=== PATIENT | female | born 1960 | race African-American/Black ===

== ENCOUNTER 2020-08-10 13:35 | Emergency (ER) | payer MEDICAID ==
[~2020-08-10] VITALS: Ht 172.7 cm; Wt 113.4 kg
[~2020-08-10 13:35] MED LIST: ALBUAER3 IN; AMLO-489 PO; BECL80AE11 IN; FURO20TA3 PO; METO-169 PO
[2020-08-10] MEDS ORDERED: cloNIDine HCL 0.1 MG TAB PO ONE (14:15)
[2020-08-10] MEDS ORDERED: HYDROcodone-ACET 10/325MG TAB PO ONE (14:30)
[2020-08-10 15:01] LABS: Basophils # (auto) 0.1 10 ^3/uL (0-0.2); Basophils % (auto) 0.7 % (0.0-2.0); Eosinophils # (auto) 0.1 10 ^3/uL (0-0.8); Eosinophils % (auto) 1.4 % (0.0-7.0); Hematocrit 38.7 % (36.0-46.0); Hemoglobin 12.9 g/dL (12.2-16.2); Lymphocytes # (auto) 2.8 10 ^3/uL (0.4-5.4); Lymphocytes % (auto) 35.6 % (10.0-50.0); Mean Corpuscular Hemoglobin 28.6 pg (28.0-32.0); Mean Corpuscular Hgb Conc. 33.3 g/dL (32.0-36.0); Mean Corpuscular Volume 85.9 fL (80.0-100.0); Monocytes # (auto) 0.5 10 ^3/uL (0-1.3); Monocytes % (auto) 6.3 % (0.0-12.0); Neutrophils # (auto) 4.4 10 ^3/uL (1.6-8.6); Nucleated Red Blood Cells % 0.1 %; Platelet Count (auto) 265 10^3/uL (140-450); Red Cell Distribution Width 16.2 % (11.8-14.3); White Blood Cell 7.9 10^3/uL (4.4-10.8)
[2020-08-10 15:25] LABS: Chloride 109 mmol/L (98-107); Potassium 3.8 mmol/L (3.5-5.1); Sodium 143 mmol/L (136-145)
[2020-08-10 15:29] LABS: Alanine Aminotransferase 20 U/L (13-56); Albumin 3.3 g/dL (3.4-5.0); Anion Gap 8 (5-15); Aspartate Aminotransferase 31 U/L (15-37); Blood Urea Nitrogen 11 mg/dL (7-18); Calcium 8.5 mg/dL (8.5-10.1); Carbon Dioxide 26 mmol/L (21-32); GFR African American 80 mL/min; GFR Non-African American 66 mL/min; Glucose 86 mg/dL (74-106)
[2020-08-10 15:34] LABS: Alkaline Phosphatase 120 U/L (45-117); Bilirubin, Total 0.4 mg/dL (0.2-1.0); Total Protein 7.6 g/dL (6.4-8.2)
[2020-08-10 15:54] VITALS: BP 161/78
== END 2020-08-10 15:56 | disposition home or self-care (01) ==
LOC: ER 13:35
DX: I16.0 Hypertensive urgency (principal); I10 Essential (primary) hypertension; J44.9 Chronic obstructive pulmonary disease, unspecified; F17.210 Nicotine dependence, cigarettes, uncomplicated; R51.9 Headache, unspecified; Z86.73 Personal history of transient ischemic attack (TIA), and cerebral infarction without residual deficits
CPT/HCPCS: 36415; 70450; 80053; 84484; 85025; 93005

== ENCOUNTER 2020-08-27 13:00 | Emergency (ER) | payer MEDICAID ==
[~2020-08-27] VITALS: Ht 172.7 cm; Wt 108.9 kg
[2020-08-27] MEDS ORDERED: cloNIDine HCL 0.1 MG TAB ONE (13:09)
[2020-08-27] MEDS ORDERED: cloNIDine HCL 0.1 MG TAB PO ONE (13:15)
[2020-08-27 14:21] LABS: Basophils # (auto) 0.1 10 ^3/uL (0-0.2); Basophils % (auto) 0.7 % (0.0-2.0); Eosinophils # (auto) 0.1 10 ^3/uL (0-0.8); Eosinophils % (auto) 0.9 % (0.0-7.0); Hematocrit 40.8 % (36.0-46.0); Hemoglobin 13.6 g/dL (12.2-16.2); Lymphocytes # (auto) 2.5 10 ^3/uL (0.4-5.4); Lymphocytes % (auto) 25.5 % (10.0-50.0); Mean Corpuscular Hemoglobin 28.2 pg (28.0-32.0); Mean Corpuscular Hgb Conc. 33.3 g/dL (32.0-36.0); Mean Corpuscular Volume 84.9 fL (80.0-100.0); Monocytes # (auto) 0.5 10 ^3/uL (0-1.3); Monocytes % (auto) 5.3 % (0.0-12.0); Neutrophils # (auto) 6.7 10 ^3/uL (1.6-8.6); Neutrophils % (auto) 67.6 % (37.0-80.0); Nucleated Red Blood Cells % 0.1 %; Platelet Count (auto) 302 10^3/uL (140-450); Red Blood Cells 4.81 10^6/uL (4.0-5.20); Red Cell Distribution Width 15.5 % (11.8-14.3); White Blood Cell 9.9 10^3/uL (4.4-10.8)
[2020-08-27 14:33] LABS: Albumin 3.6 g/dL (3.4-5.0); Anion Gap 7 (5-15); Blood Urea Nitrogen 14 mg/dL (7-18); Calcium 9.4 mg/dL (8.5-10.1); Carbon Dioxide 25 mmol/L (21-32); Chloride 111 mmol/L (98-107); Glucose 90 mg/dL (74-106); Potassium 3.6 mmol/L (3.5-5.1); Sodium 143 mmol/L (136-145)
[2020-08-27 14:39] LABS: Alanine Aminotransferase 18 U/L (13-56); Alkaline Phosphatase 121 U/L (45-117); Aspartate Aminotransferase 58 U/L (15-37); BUN/Creatinine Ratio 16.9; Bilirubin, Total 0.3 mg/dL (0.2-1.0); GFR African American 90 mL/min; GFR Non-African American 75 mL/min; Total Protein 7.7 g/dL (6.4-8.2)
[2020-08-27] MEDS ORDERED: IOHEXOL 300 MG/ML 100ML BOTTLE IJ ONE (15:25)
[2020-08-27] MEDS ORDERED: hydrALAZINE HCL 20 MG/ML VL IV ONE (16:30)
[2020-08-27 16:37] VITALS: BP 163/81
[2020-08-27] MEDS ORDERED: HYDROcodone-ACET 10/325MG TAB PO ONE (17:15)
[2020-08-27 17:50] LABS: Urine Bacteria NONE SEEN /hpf (None Seen); Urine Blood Negative /uL (Negative); Urine WBC 1 /hpf (0 - 5)
[2020-08-27 18:01] LABS: Urine Specific Gravity > 1.050 (1.001-1.035)
== END 2020-08-27 17:48 | disposition left against medical advice (07) ==
LOC: ER 13:00
DX: I16.1 Hypertensive emergency (principal); R51.9 Headache, unspecified; F17.210 Nicotine dependence, cigarettes, uncomplicated; J44.9 Chronic obstructive pulmonary disease, unspecified; Z86.73 Personal history of transient ischemic attack (TIA), and cerebral infarction without residual deficits; Z79.899 Other long term (current) drug therapy; Z98.890 Other specified postprocedural states; Z53.29 Procedure and treatment not carried out because of patient's decision for other reasons
CPT/HCPCS: 36415; 70450; 71046; 74177; 80053; 81001; 82570; 84484; 84585; 85025; 93005; 96374; 99285; J0360; Q9967

== ENCOUNTER 2020-09-06 10:12 | Inpatient (IN) | payer MEDICAID ==
[~2020-09-06] VITALS: Ht 172.7 cm; Wt 118.4 kg
[2020-09-06] MEDS ORDERED: amLODIPine BESYLATE 5 MG TAB PO ONE (10:30)
[2020-09-06 11:01] LABS: Basophils # (auto) 0.1 10 ^3/uL (0-0.2); Basophils % (auto) 0.8 % (0.0-2.0); Eosinophils # (auto) 0.1 10 ^3/uL (0-0.8); Eosinophils % (auto) 0.6 % (0.0-7.0); Hemoglobin 13.7 g/dL (12.2-16.2); Lymphocytes # (auto) 1.9 10 ^3/uL (0.4-5.4); Lymphocytes % (auto) 21.2 % (10.0-50.0); Mean Corpuscular Hemoglobin 28.4 pg (28.0-32.0); Mean Corpuscular Hgb Conc. 33.3 g/dL (32.0-36.0); Mean Corpuscular Volume 85.3 fL (80.0-100.0); Monocytes # (auto) 0.5 10 ^3/uL (0-1.3); Neutrophils # (auto) 6.4 10 ^3/uL (1.6-8.6); Neutrophils % (auto) 71.4 % (37.0-80.0); Nucleated Red Blood Cells % 0.1 %; Platelet Count (auto) 285 10^3/uL (140-450); Red Blood Cells 4.81 10^6/uL (4.0-5.20); White Blood Cell 8.9 10^3/uL (4.4-10.8)
[2020-09-06 11:19] LABS: Albumin 3.6 g/dL (3.4-5.0); Anion Gap 9 (5-15); Blood Urea Nitrogen 12 mg/dL (7-18); Calcium 8.9 mg/dL (8.5-10.1); Carbon Dioxide 22 mmol/L (21-32); Chloride 109 mmol/L (98-107); Glucose 94 mg/dL (74-106); INR 0.99 (0.9-1.15); Magnesium 2.2 mg/dL (1.6-2.6); Partial Thromboplastin Time 26.5 sec (23.0-31.2); Potassium 3.4 mmol/L (3.5-5.1); Sodium 140 mmol/L (136-145)
[2020-09-06 11:26] LABS: Alanine Aminotransferase 24 U/L (13-56); Alkaline Phosphatase 137 U/L (45-117); Aspartate Aminotransferase 54 U/L (15-37); BUN/Creatinine Ratio 13.8; Bilirubin, Total 0.6 mg/dL (0.2-1.0); GFR African American 86 mL/min; GFR Non-African American 71 mL/min; Total Protein 7.8 g/dL (6.4-8.2)
[2020-09-06] MEDS ORDERED: ONDANSETRON HCL 4 MG/2 ML VIAL IV ONE (11:45)
[2020-09-06] MEDS ORDERED: MORPHINE SULFATE 4 MG/ML SYR/VIAL IV ONE (11:45)
[2020-09-06 12:21] LABS: Urine WBC None Seen /hpf (0 - 5)
[2020-09-06 12:29] LABS: Urine Bacteria FEW /hpf (None Seen); Urine Blood 1+ /uL (Negative); Urine Specific Gravity 1.013 (1.001-1.035)
[2020-09-06] MEDS ORDERED: ONDANSETRON HCL 4 MG/2 ML VIAL IV PRN (14:15)
[2020-09-06] MEDS ORDERED: DOCUSATE CALCIUM 240 MG CAP PO PRN (14:15)
[2020-09-06] MEDS ORDERED: NITROGLYCERIN 0.4 MG SL TAB SL PRN (14:15)
[2020-09-06] MEDS ORDERED: POTASSIUM CHL 10 Meq TABLET PO ONE (14:15)
[2020-09-06] MEDS ORDERED: MORPHINE SULF INJ 2 MG/ML SYRINGE 1ML IV PRN (14:15)
[2020-09-06 14:24] VITALS: BP 157/89
[2020-09-06] MEDS: MORPHINE SULFATE 4 MG/ML SYR/VIAL IV PRN ×3 (15:52→23:19)
[2020-09-06] MEDS: hydrALAZINE HCL 20 MG/ML VL IV PRN (16:55)
[2020-09-06 17:00] VITALS: BP 152/87
[2020-09-06] MEDS: BUDESONIDE (INHALATION) 0.5 MG/2 ML NEB NEB SCH (18:29)
[2020-09-06 22:00] VITALS: BP 141/69
[2020-09-06] MEDS: ACETAMINOPHEN 500 MG TAB PO PRN (23:29)
[2020-09-07 05:00] VITALS: BP 144/80
[2020-09-07 06:55] LABS: Basophils # (auto) 0.1 10 ^3/uL (0-0.2); Basophils % (auto) 0.8 % (0.0-2.0); Eosinophils # (auto) 0.1 10 ^3/uL (0-0.8); Eosinophils % (auto) 1.3 % (0.0-7.0); Hematocrit 38.7 % (36.0-46.0); Hemoglobin 12.8 g/dL (12.2-16.2); Mean Corpuscular Hemoglobin 28.3 pg (28.0-32.0); Mean Corpuscular Volume 85.8 fL (80.0-100.0); Monocytes # (auto) 0.6 10 ^3/uL (0-1.3); Monocytes % (auto) 9.2 % (0.0-12.0); Neutrophils # (auto) 3.8 10 ^3/uL (1.6-8.6); Neutrophils % (auto) 58.7 % (37.0-80.0); Nucleated Red Blood Cells % 0.1 %; Platelet Count (auto) 269 10^3/uL (140-450); Red Blood Cells 4.51 10^6/uL (4.0-5.20); Red Cell Distribution Width 15.3 % (11.8-14.3); White Blood Cell 6.6 10^3/uL (4.4-10.8)
[2020-09-07] MEDS: MORPHINE SULFATE 4 MG/ML SYR/VIAL IV PRN ×3 (06:56→23:57)
[2020-09-07 07:13] LABS: Albumin 3.2 g/dL (3.4-5.0); Calcium 8.6 mg/dL (8.5-10.1); Potassium 3.7 mmol/L (3.5-5.1)
[2020-09-07 07:17] LABS: BUN/Creatinine Ratio 17.6; Bilirubin, Total 0.6 mg/dL (0.2-1.0); Total Protein 6.9 g/dL (6.4-8.2)
[2020-09-07] MEDS: ACETAMINOPHEN 500 MG TAB PO PRN ×2 (08:02→20:56)
[2020-09-07 08:30] VITALS: BP 138/76
[2020-09-07] MEDS: amLODIPine BESYLATE 5 MG TAB PO SCH (09:41)
[2020-09-07] MEDS: METOPROLOL SUCCINATE XL 50 MG TAB PO SCH (09:42)
[2020-09-07] MEDS: PANTOPRAZOLE 40 MG TAB PO SCH (09:44)
[2020-09-07] MEDS: ENOXAPARIN SOD 40 MG/0.4 ML SYRINGE SC SCH (09:44)
[2020-09-07] MEDS ORDERED: KETOROLAC TROMETH 30 MG/ML 1ML VIAL IV ONE (10:30)
[2020-09-07] MEDS ORDERED: LORazepam 2MG/ML-1ML VIAL IV ONE (10:30)
[2020-09-07] MEDS: BUDESONIDE (INHALATION) 0.5 MG/2 ML NEB NEB SCH ×2 (10:35→21:49)
[2020-09-07] MEDS: ALBUTEROL SULF 2.5 MG/0.5ML(0.5%) NEB SOLN NEB PRN (10:36)
[2020-09-07 17:00] VITALS: BP 142/76
[2020-09-07 20:00] VITALS: BP 128/88
[2020-09-07 22:00] VITALS: BP 128/88
[2020-09-08 01:07] LABS: Cholesterol 189 mg/dL (< 200); HDL Cholesterol 37 mg/dL (40-59); LDL Cholesterol 127 mg/dL (< 100); Triglycerides 141 mg/dL (< 150)
[2020-09-08] MEDS: LORazepam 0.5 MG TAB PO PRN ×2 (02:10→21:55)
[2020-09-08 05:00] VITALS: BP 120/71
[2020-09-08] MEDS: BUDESONIDE (INHALATION) 0.5 MG/2 ML NEB NEB SCH ×2 (06:03→19:52)
[2020-09-08] MEDS: ALBUTEROL SULF 2.5 MG/0.5ML(0.5%) NEB SOLN NEB PRN ×2 (06:03→19:52)
[2020-09-08 08:00] VITALS: BP 138/76
[2020-09-08 08:42] VITALS: BP 158/101
[2020-09-08] MEDS: MORPHINE SULFATE 4 MG/ML SYR/VIAL IV PRN ×3 (08:48→19:58)
[2020-09-08] MEDS: ASPirin-EC 81 mg tab PO SCH (08:48)
[2020-09-08] MEDS: amLODIPine BESYLATE 5 MG TAB PO SCH (08:49)
[2020-09-08] MEDS: ENOXAPARIN SOD 40 MG/0.4 ML SYRINGE SC SCH (08:49)
[2020-09-08] MEDS: PANTOPRAZOLE 40 MG TAB PO SCH (08:49)
[2020-09-08] MEDS: METOPROLOL SUCCINATE XL 50 MG TAB PO SCH (08:50)
[2020-09-08 12:27] VITALS: BP 153/89
[2020-09-08] MEDS: hydrALAZINE HCL 20 MG/ML VL IV PRN (13:47)
[2020-09-08] MEDS: HYDROcodone-ACET 5/325MG TAB PO PRN (14:00)
[2020-09-08] MEDS ORDERED: cloNIDine HCL 0.1 MG TAB PO PRN (14:45)
[2020-09-08 16:48] VITALS: BP 126/76
[2020-09-08] MEDS: ACETAMINOPHEN 500 MG TAB PO PRN (19:59)
[2020-09-08] MEDS: ATORVASTATIN 20 MG TAB PO SCH (21:55)
[2020-09-08 22:09] VITALS: BP 147/69
[2020-09-09] VITALS (7 sets, daily range): BP systolic 98–154; BP diastolic 69–88
[2020-09-09] MEDS: MORPHINE SULFATE 4 MG/ML SYR/VIAL IV PRN ×3 (05:52→20:15)
[2020-09-09] MEDS: hydrALAZINE HCL 20 MG/ML VL IV PRN (05:53)
[2020-09-09] MEDS: ACETAMINOPHEN 500 MG TAB PO PRN ×2 (05:54→20:15)
[2020-09-09] MEDS: HYDROcodone-ACET 5/325MG TAB PO PRN ×2 (08:45→16:12)
[2020-09-09] MEDS: ASPirin-EC 81 mg tab PO SCH (09:23)
[2020-09-09] MEDS: PANTOPRAZOLE 40 MG TAB PO SCH (09:24)
[2020-09-09] MEDS: amLODIPine BESYLATE 5 MG TAB PO SCH (09:24)
[2020-09-09] MEDS: METOPROLOL SUCCINATE XL 50 MG TAB PO SCH (09:24)
[2020-09-09] MEDS: ENOXAPARIN SOD 40 MG/0.4 ML SYRINGE SC SCH (09:25)
[2020-09-09] MEDS: BUDESONIDE (INHALATION) 0.5 MG/2 ML NEB NEB SCH ×2 (09:53→19:19)
[2020-09-09] MEDS: ALBUTEROL SULF 2.5 MG/0.5ML(0.5%) NEB SOLN NEB PRN (09:53)
[2020-09-09] MEDS: ATORVASTATIN 20 MG TAB PO SCH (21:31)
[2020-09-09] MEDS: LORazepam 0.5 MG TAB PO PRN (21:31)
[2020-09-10 05:14] VITALS: BP 133/76
[2020-09-10] MEDS: MORPHINE SULFATE 4 MG/ML SYR/VIAL IV PRN (06:46)
[2020-09-10] MEDS: ACETAMINOPHEN 500 MG TAB PO PRN (06:46)
[2020-09-10] MEDS: BUDESONIDE (INHALATION) 0.5 MG/2 ML NEB NEB SCH (07:08)
[2020-09-10] MEDS: ALBUTEROL SULF 2.5 MG/0.5ML(0.5%) NEB SOLN NEB PRN (07:08)
[2020-09-10 09:00] VITALS: BP 152/85
[2020-09-10] MEDS: ASPirin-EC 81 mg tab PO SCH (09:34)
[2020-09-10] MEDS: amLODIPine BESYLATE 5 MG TAB PO SCH (09:35)
[2020-09-10] MEDS: PANTOPRAZOLE 40 MG TAB PO SCH (09:35)
[2020-09-10] MEDS: METOPROLOL SUCCINATE XL 50 MG TAB PO SCH (09:36)
[2020-09-10] MEDS: ENOXAPARIN SOD 40 MG/0.4 ML SYRINGE SC SCH (09:36)
[2020-09-10] MEDS: HYDROcodone-ACET 5/325MG TAB PO PRN (11:04)
[2020-09-10 12:23] VITALS: BP 153/87
[2020-09-10 13:00] VITALS: BP 153/87
== END 2020-09-10 13:45 | disposition home or self-care (01) | DRG 199 ==
LOC: ER 10:12 → TELE 14:01 → TELE-CENTR 16:00
PROVIDERS: ADMIT Family Medicine; ATTEND Internal Medicine
DX: I16.1 Hypertensive emergency (principal); E66.01 Morbid (severe) obesity due to excess calories; E87.6 Hypokalemia; J45.909 Unspecified asthma, uncomplicated; M54.2 Cervicalgia; Z68.39 Body mass index [BMI] 39.0-39.9, adult; F17.210 Nicotine dependence, cigarettes, uncomplicated; G47.10 Hypersomnia, unspecified; I10 Essential (primary) hypertension; I25.10 Atherosclerotic heart disease of native coronary artery without angina pectoris; J44.9 Chronic obstructive pulmonary disease, unspecified; K43.9 Ventral hernia without obstruction or gangrene; M19.90 Unspecified osteoarthritis, unspecified site; N28.89 Other specified disorders of kidney and ureter; Z20.822 Contact with and (suspected) exposure to COVID-19; Z79.82 Long term (current) use of aspirin; Z79.899 Other long term (current) drug therapy; Z82.49 Family history of ischemic heart disease and other diseases of the circulatory system; Z83.3 Family history of diabetes mellitus; Z86.73 Personal history of transient ischemic attack (TIA), and cerebral infarction without residual deficits; Z90.49 Acquired absence of other specified parts of digestive tract
CPT/HCPCS: 36415; 70450; 70551; 71045; 72040; 73200; 74176; 76775; 78315; 80053; 80061; 81001; 83735; 84443; 84484; 85025; 85379; 85610; 85652; 85730; 87426; 93005; 93306; 93886; 93971; 94640; 96374; 96375; G0378; J1885; J2405

== ENCOUNTER 2022-07-06 15:34 | Emergency (ER) | payer MEDICAID ==
[~2022-07-06] VITALS: Ht 172.7 cm; Wt 120.5 kg
[~2022-07-06 15:34] MED LIST changes: -METO-169 PO; +METO-289 PO
[2022-07-06] MEDS ORDERED: ACETAMINOPHEN 500 MG TAB PO ONE (15:45)
[2022-07-06] MEDS ORDERED: IPRATROPIUM BROM 0.5 MG/2.5ML INH SOL NEB ONE (15:45)
[2022-07-06] MEDS ORDERED: ALBUTEROL SULF 2.5 MG/0.5ML(0.5%) NEB SOLN NEB ONE (15:45)
[2022-07-06 15:54] VITALS: BP 151/95
[2022-07-06] MEDS ORDERED: ALBUTEROL MEDNEB 2.5 mg/3ml NEB ONE (16:02)
[2022-07-06] MEDS ORDERED: HYDROcodone-ACET 5/325MG TAB PO ONE (20:15)
== END 2022-07-07 09:41 | disposition home or self-care (01) ==
LOC: ER 15:34
DX: J44.1 Chronic obstructive pulmonary disease with (acute) exacerbation (principal); F17.210 Nicotine dependence, cigarettes, uncomplicated; Z20.822 Contact with and (suspected) exposure to COVID-19
CPT/HCPCS: 36415; 71046; 87426; 87804; 93005; 94640; 99285; J7644

== ENCOUNTER 2023-10-19 09:56 | Emergency (ER) | payer MEDICAID ==
[~2023-10-19] VITALS: Ht 170.2 cm; Wt 121.9 kg
[2023-10-19] VITALS (8 sets, daily range): BP systolic 143–156; BP diastolic 72–74; PULSE 53–61; RESP 16–20; TEMP 97.6–98; O2SAT 96–99
[~2023-10-19 09:56] MED LIST changes: -AMLO-489 PO; +AMLO1TAB22 PO
[2023-10-19 10:28] LABS: Basophils # (auto) 0.1 10 ^3/uL (0-0.2); Basophils % (auto) 0.9 % (0.0-2.0); Eosinophils # (auto) 0.2 10 ^3/uL (0-0.8); Eosinophils % (auto) 2.2 % (0.0-7.0); Hematocrit 40.9 % (36.0-46.0); Hemoglobin 13.3 g/dL (12.2-16.2); Lymphocytes % (auto) 30.7 % (10.0-50.0); Mean Corpuscular Hgb Conc. 32.4 g/dL (32.0-36.0); Mean Corpuscular Volume 83.1 fL (80.0-100.0); Monocytes # (auto) 0.7 10 ^3/uL (0-1.3); Neutrophils # (auto) 5.8 10 ^3/uL (1.6-8.6); Neutrophils % (auto) 59.2 % (37.0-80.0); Nucleated Red Blood Cells % 0.1 %; Red Blood Cells 4.92 10^6/uL (4.0-5.20); Red Cell Distribution Width 15.8 % (11.8-14.3); White Blood Cell 9.8 10^3/uL (4.4-10.8)
[2023-10-19 10:37] LABS: Chloride 108 mmol/L (98-107); Potassium 4.3 mmol/L (3.5-5.1); Sodium 141 mmol/L (136-145)
[2023-10-19 10:38] LABS: Anion Gap 4 (5-15); Calcium 9.3 mg/dL (8.5-10.1); Carbon Dioxide 29 mmol/L (20-30)
[2023-10-19 10:43] LABS: BUN/Creatinine Ratio 14.9 (10.0-20.0); Blood Urea Nitrogen 13 mg/dL (9-23); Glucose 102 mg/dL (74-106)
[2023-10-19] MEDS: IPRATROPIUM BROM 0.5 MG/2.5ML INH SOL NEB ONE (10:45)
[2023-10-19] MEDS: ALBUTEROL SULF 2.5 MG/0.5ML(0.5%) NEB SOLN NEB ONE (10:45)
[2023-10-19 10:58] LABS: Urine Bacteria FEW /hpf (None Seen); Urine Blood TRACE /uL (Negative); Urine Clarity Clear (Clear); Urine Color Yellow (Yellow); Urine Mucus FEW (None Seen); Urine Protein, UAD TRACE (Negative); Urine Specific Gravity 1.023 (1.001-1.035); Urine Urobilinogen Normal (Negative); Urine WBC 1 /hpf (0 - 5); Urine pH 5.5 (5.0-9.0)
[2023-10-19] MEDS: methylPREDNISolone SOD SUCC 125 MG/2 ML VL IV ONE (11:28)
[2023-10-19] MEDS: HYDROcodone-ACET 10/325MG TAB PO ONE (11:50)
[2023-10-19] MEDS: ONDANSETRON HCL 4 MG/2 ML VIAL IV ONE (12:48)
[2023-10-19] MEDS: MORPHINE SULFATE INJ 2 MG/ml SYRG IV ONE (12:49)
[2023-10-19] MEDS ORDERED: NITROGLYCERIN 0.4 MG SL TAB SL PRN (13:30)
[2023-10-19] MEDS ORDERED: HYDROcodone-ACET 5/325MG TAB PO PRN (13:30)
[2023-10-19] MEDS ORDERED: ACETAMINOPHEN 325 MG TAB PO PRN (13:30)
[2023-10-19] MEDS ORDERED: MORPHINE SULFATE INJ 2 MG/ml SYRG IV PRN (13:30)
[2023-10-19] MEDS ORDERED: DOCUSATE SOD 100 MG CAP PO PRN (13:30)
[2023-10-19] MEDS ORDERED: SERT-160 PO (13:41)
[2023-10-19] MEDS ORDERED: HYDR50TA69 PO (13:41)
[2023-10-19] MEDS ORDERED: ATOR20TA50 PO (13:41)
[2023-10-19] MEDS ORDERED: METO25TA93 PO (13:41)
[2023-10-19] MEDS ORDERED: LAMO25TA27 PO (13:41)
[2023-10-19] MEDS ORDERED: GABA-1250 PO (13:41)
[2023-10-19] MEDS ORDERED: LISI10TA34 PO (13:41)
[2023-10-19] MEDS ORDERED: QUET200T45 PO (13:41)
[2023-10-19] MEDS: IOHEXOL 350 MG/ML 100ML IJ ONE (13:54)
[2023-10-19] MEDS: ENOXAPARIN SOD 40 MG/0.4 ML SYRINGE SC SCH (13:56)
[2023-10-19] MEDS ORDERED: hydrALAZINE HCL 20 MG/ML VL IV PRN (14:00)
[2023-10-19] MEDS: cefTRIAXone 1GM/50ML D5W 50 ML IV ONE (14:36)
[2023-10-19] MEDS: AZITHROMYCIN 500MG/ 250ML 250 ML IV ONE (15:22)
[2023-10-19] MEDS: IPRATROPIUM BROM 0.5 MG/2.5ML INH SOL NEB SCH (18:44)
[2023-10-19] MEDS: ALBUTEROL SULF 2.5 MG/0.5ML(0.5%) NEB SOLN NEB SCH (18:45)
[2023-10-19] MEDS: ONDANSETRON HCL 4 MG/2 ML VIAL IV PRN (20:36)
[2023-10-19] MEDS: MORPHINE SULFATE INJ 2 MG/ml SYRG IV PRN (20:37)
[2023-10-19] MEDS ORDERED: PATIENTS OWN MEDICATION (Lisinopril 1 TAB) PO SCH (22:00)
[2023-10-19] MEDS ORDERED: PATIENTS OWN MEDICATION (Hydroxyzine Hcl 1 TAB) PO SCH (22:00)
[2023-10-19] MEDS: GABAPENTIN 300 MG CAP PO SCH (22:41)
[2023-10-20] MEDS ORDERED: PANTOPRAZOLE 40 MG TAB PO SCH (06:00)
[2023-10-20] MEDS ORDERED: cefTRIAXone 1GM/50ML D5W 50 ML IV SCH (09:00)
[2023-10-20] MEDS ORDERED: METOPROLOL SUCCINATE XL 50 MG TAB PO SCH (10:00)
[2023-10-20] MEDS ORDERED: SERTRALINE HCL 50 MG TAB PO SCH (10:00)
[2023-10-20] MEDS ORDERED: PATIENTS OWN MEDICATION (Sertraline Hcl 1 TAB) PO SCH (10:00)
[2023-10-20] MEDS ORDERED: ATORVASTATIN 20 MG TAB PO SCH (10:00)
[2023-10-20] MEDS ORDERED: hydrOXYzine 25 MG TAB or CAP PO SCH (10:00)
[2023-10-20] MEDS ORDERED: AZITHROMYCIN 500MG/ 250ML 250 ML IV SCH (10:00)
[2023-10-20] MEDS ORDERED: PATIENTS OWN MEDICATION (Metoprolol Succinate (Metoprolol Succinate Er) 1 TAB) PO SCH (10:00)
[2023-10-20] MEDS ORDERED: LISINOPRIL 5 MG TAB PO SCH (10:00)
[2023-10-20] MEDS ORDERED: methylPREDNISolone SOD SUCC 40 MG/ML VL IV SCH (10:00)
== END 2023-10-20 00:39 | disposition left against medical advice (07) ==
LOC: ER 09:56 → UNDOADMIN 13:35 → TELE 13:35 → UNDODISIN 10-20 00:39
DX: J44.1 Chronic obstructive pulmonary disease with (acute) exacerbation (principal); E66.9 Obesity, unspecified; I10 Essential (primary) hypertension; I25.10 Atherosclerotic heart disease of native coronary artery without angina pectoris; Z86.73 Personal history of transient ischemic attack (TIA), and cerebral infarction without residual deficits
CPT/HCPCS: 36415; 71045; 71275; 80048; 81001; 84484; 85025; 85379; 93005; 94640; 96365; 96366; 96367; 96372; 96375; 96376; 99285; J0456; J0696; J1650; J2270; J2405; J2919; J7644; Q9967; 96374; G0378